=== PATIENT | female | born 1980 | race Caucasian/White ===

== ENCOUNTER 2016-09-17 21:49 | Emergency (ER) | payer MEDICARE, OTHER ==
[~2016-09-17] VITALS: Ht 167.6 cm; Wt 108.9 kg
[~2016-09-17 21:49] MED LIST: ACET325T21 PO; ACET325T9 PO; ALBU0.63 IH; ALBU1.25 NEB; ALPR0.5T6 PO; ALPR1TAB6 PO; BENZ1TAB5 PO; CEFP200T PO; CITA20TA9 PO; CLIN300C8 PO; CLON0.5T3 PO; CLON1TAB3 PO; CLON2TAB2 PO; DIVA125C PO; DIVA500T2 PO; DOXY100T PO; FLUT12HF2 IH; FLUT16SP2 NS; FLUV100T2 PO; HALO2TAB PO; HALO5TAB PO; LORA-434 PO; METO50TA2 PO; METR70GE16 VG; OLAN10TA3 PO; OLAN5TAB3 PO; OXCA300T3; OXCA600T3 PO; PRIM50TA PO; PRIM50TA24 PO; QUET300T5 PO; TIOT18CA IH; TRIM100T13 PO; [UNRECOGNIZED DRUG - OTHER] PO
--- NOTE | 2016-09-17 21:55 | PHYS DOC ---
Past History Past Medical History: Anxiety, Bipolar, COPD, Depression, Hypertension, Pneumonia, UTI Additional Past Medical Histor: Pneumonia 09/2015; dysphagia Past Surgical History: Other Additional Past Surgical Histo: PEG place 09/2015 Alcohol Use: None Drug Use: None Social History Narrative: Lives at home Adult General Chief Complaint Chief Complaint: COMBATIVE; LOSS OF PEG TUBE HPI HPI Patient is a 36 year old female who presents with change in behavior and loss of PEG tube. Lives at home and family notes that Sunday they saw her behavior change. She did gradually worsening on Sunday home care provider noted that she was much more combative. Sunday she pulled her PEG tube was taking to [facility]. She was so combative that they were not able to replace the PEG tube. She was sent home however she has dysphagia it is not to take much by mouth. They tried some thickened liquids to get her through. Her behavior has somewhat improved and she is wanting to come in and get herself feeling better. She hasn't had any fevers. No vomiting. No Diarrhea. No cough or cold symptoms. Review of Systems Review of Systems Constitutional: Denies fever or chills Eyes: Denies change in visual acuity, redness, or eye pain HENT: Denies nasal congestion or sore throat Respiratory: Denies cough or shortness of breath Cardiovascular: No chest pain GI: Denies abdominal pain, nausea, vomiting, bloody stools or diarrhea. Pulled PEG tube : Denies dysuria or hematuria Musculoskeletal: Denies back pain or joint pain Integument: Denies rash or skin lesions Neurologic: Denies headache, focal weakness or sensory changes Psychiatric: Behavioral change since Sun. Increase combativeness. Allergies Allergies Allergies Coded Allergies Type Severity Reaction Last Updated Verified Penicillins Allergy Intermediate 10/29/15 Yes Sulfa (Sulfonamide Antibiotics) Allergy Intermediate 10/29/15 Yes ciprofloxacin Allergy Intermediate 10/29/15 Yes codeine Allergy Intermediate 10/29/15 Yes levofloxacin Allergy Intermediate 06/07/14 Yes sulfamethoxazole Allergy Intermediate 06/22/15 Yes trimethoprim Allergy Intermediate 06/22/15 Yes Physical Exam Physical Exam Constitutional: Well developed, well nourished, no acute distress, non-toxic appearance. HENT: Normocephalic, atraumatic, bilateral external ears normal, oropharynx moist, no oral exudates, nose normal. Eyes: PERRLA, EOMI, conjunctiva normal, no discharge. Neck: Normal range of motion, no tenderness, supple, no stridor. Cardiovascular:Heart rate regular rhythm, no murmur Lungs & Thorax: Bilateral breath sounds clear to auscultation Abdomen: Bowel sounds normal, soft, no tenderness, no masses, no pulsatile masses. Skin: Warm, dry, no erythema, no rash. Back: No tenderness, no CVA tenderness. Extremities: No tenderness, no cyanosis, no clubbing, ROM intact, no edema. Neurologic: Alert and oriented X 3, normal motor function, normal sensory function, no focal deficits noted. Psychologic: docile and cooperative. Current Patient Data Vital Signs Vital Signs Date Time Temp Pulse Resp B/P (MAP) Pulse Ox O2 Delivery O2 Flow Rate FiO2 09/17/16 21:49 97.9 98 20 96 Room Air Lab Results Laboratory Tests Test 09/17/16 22:18 White Blood Count 6.0 x10^3/uL Red Blood Count 3.77 x10^6/uL Hemoglobin 11.6 g/dL Hematocrit 34.7 % Mean Corpuscular Volume 92 fL Mean Corpuscular Hemoglobin 31 pg Mean Corpuscular Hemoglobin Concent 34 g/dL Red Cell Distribution Width 15.3 % Platelet Count 179 x10^3/uL Neutrophils (%) (Auto) 54 % Lymphocytes (%) (Auto) 32 % Monocytes (%) (Auto) 13 % Eosinophils (%) (Auto) 0 % Basophils (%) (Auto) 1 % Neutrophils # (Auto) 3.3 x10^3uL Lymphocytes # (Auto) 1.9 x10^3/uL Monocytes # (Auto) 0.8 x10^3/uL Eosinophils # (Auto) 0.0 x10^3/uL Basophils # (Auto) 0.0 x10^3/uL Prothrombin Time 10.8 SEC Prothromb Time International Ratio 1.1 Activated Partial Thromboplast Time 22 SEC Sodium Level 144 mmol/L Potassium Level 4.0 mmol/L Chloride Level 106 mmol/L Carbon Dioxide Level 32 mmol/L Anion Gap 6 Blood Urea Nitrogen 11 mg/dL Creatinine 0.9 mg/dL Estimated GFR (Cockcroft-Gault) 70.5 BUN/Creatinine Ratio 12 Glucose Level 120 mg/dL Calcium Level 8.7 mg/dL Total Bilirubin 0.3 mg/dL Aspartate Amino Transf (AST/SGOT) 38 U/L Alanine Aminotransferase (ALT/SGPT) 34 U/L Alkaline Phosphatase 60 U/L Total Protein 6.3 g/dL Albumin 3.7 g/dL Albumin/Globulin Ratio 1.4 Lipase 130 U/L Current Medications Medications (Trade) Dose Ordered Sig/[place] Route PRN Reason Start Time Stop Time Status Last Admin Dose Admin Sodium Chloride 1,000 ml @ 1,000 mls/hr Q1H IV 09/17/16 22:30 09/17/16 23:29 09/17/16 22:23 Ondansetron HCl (Zofran) 4 mg 1X ONCE IV 09/17/16 22:30 09/17/16 22:31 DC 09/17/16 22:24 Ziprasidone (Geodon Im) 10 mg 1X ONCE IM 09/17/16 22:30 09/17/16 22:31 DC 09/17/16 22:28 Current Medications Medications (Trade) Dose Ordered Sig/[place] Route PRN Reason Start Time Stop Time Status Last Admin Dose Admin Sodium Chloride 1,000 ml @ 1,000 mls/hr Q1H IV 09/17/16 22:30 09/17/16 23:29 Ondansetron HCl (Zofran) 4 mg 1X ONCE IV 09/17/16 22:30 09/17/16 22:31 Ziprasidone (Geodon Im) 10 mg 1X ONCE IM 09/17/16 22:30 09/17/16 22:31 Course & Med Decision Making Course & Med Decision Making Pertinent Labs and Imaging studies reviewed. (See chart for details) Evaluated patient upon arrival. She is very cooperative. EMS reported though that she was combative at home. Because of her history I ordered Geodon 10 IM. Patient was agreeable to taking it. 2220 PM: Spoke w Dr Puentes- will accept in admission. We have no GI capabilities to replace the PEG and since it has been out for so long will require GI to place. Urine dip cloudy and POS leukocytes (large); ketones noted as well. She is receiving IV fluids. IV Rocephin and urine sent for culture. 2300 PM: Awaiting bed at [facility]; family aware. WE HAVE HAD NO BEHAVIORAL CHANGE THE ENTIRE TIME SHE WAS IN OUR ED. NO COMBATIVE BEHAVIOR. SHE HAS BEEN EXTREMELY PLEASANT AND COOPERATIVE. Dragon Disclaimer Dragon Disclaimer This chart was dictated in whole or in part using Voice Recognition software in a busy, high-work load, and often noisy Emergency Department environment. It may contain unintended and wholly unrecognized errors or omissions. Departure Departure: Impression: Primary Impression: PEG (percutaneous endoscopic gastrostomy) adjustment/replacement/removal Additional Impressions: Urinary tract infection Dehydration Disposition: 05 XFER OTHER Condition: GOOD Referrals: BELKIS FERNANDEZ DO (PCP) Problem Qualifiers Additional Impressions: Urinary tract infection Urinary tract infection type: site unspecified Hematuria presence: without hematuria Qualified Codes: N39.0 - Urinary tract infection, site not specified AUSTIN BEAVERS MD Sep 17, 2016 21:55
[2016-09-17] MEDS ORDERED: IV NORMAL SALINE 1,000ML 1,000 ML IV SCH (22:30)
[2016-09-17] MEDS ORDERED: ZIPRASIDONE IM 20 MG VIAL. IM ONE (22:30)
[2016-09-17] MEDS ORDERED: ONDANSETRON PF 4 MG/2 ML VIAL. IV ONE (22:30)
[2016-09-17 22:35] LABS: BASO % 1 % (0-3); EOS % 0 % (0-3); HEMATOCRIT 34.7 % (36.0-47.0); HEMOGLOBIN 11.6 g/dL (12.0-15.5); LYMPH # 1.9 x10^3/uL (1.0-4.8); LYMPH % 32 % (24-48); MEAN CORPUSCULAR HEMOGLOBIN 31 pg (25-35); MEAN CORPUSCULAR HGB CONC 34 g/dL (31-37); MEAN CORPUSCULAR VOLUME 92 fL (79-100); MONO # 0.8 x10^3/uL (0.0-1.1); MONO % 13 % (0-9); NEUT # 3.3 x10^3uL (1.8-7.7); NEUT % 54 % (31-73); PLATELET COUNT 179 x10^3/uL (140-400); RED BLOOD COUNT 3.77 x10^6/uL (3.50-5.40); RED CELL DISTRIBUTION WIDTH 15.3 % (11.5-14.5)
[2016-09-17 22:49] LABS: ALBUMIN 3.7 g/dL (3.4-5.0); ALBUMIN/GLOBULIN RATIO 1.4 (1.0-1.7); CALCIUM 8.7 mg/dL (8.5-10.1); CREATININE 0.9 mg/dL (0.6-1.0); GFR 70.5; TOTAL BILIRUBIN 0.3 mg/dL (0.2-1.0); TOTAL PROTEIN 6.3 g/dL (6.4-8.2)
[2016-09-17] MEDS ORDERED: cefTRIAXone SODIUM 1 GM VIAL IV ONE (23:16)
[2016-09-17] MEDS ORDERED: IV NORMAL SALINE 50ML 50 ML ONE (23:16)
[2016-09-17 23:28] LABS: BACTERIA,URINE FEW /HPF (0-FEW); BILIRUBIN,URINE NEG (NEG); CLARITY,URINE HAZY; COLOR,URINE YELLOW; GLUCOSE,URINE NEG (NEG); NITRITE,URINE NEG (NEG); SQUAMOUS EPITHELIAL CELL,UR FEW /LPF; UROBILINOGEN,URINE 0.2 mg/dL (0.2 mg/dL); WBC,URINE >40 /HPF (0-4)
[2016-09-17 23:59] VITALS: BP 150/98
[2016-09-18] MEDS ORDERED: ZIPRASIDONE IM 20 MG VIAL. IM ONE (00:15)
== END 2016-09-18 00:12 | disposition short-term general hospital (02) ==
LOC: ER 21:49
DX: K94.29 Other complications of gastrostomy (principal); N39.0 Urinary tract infection, site not specified; E86.0 Dehydration; J44.9 Chronic obstructive pulmonary disease, unspecified; I10 Essential (primary) hypertension; F41.9 Anxiety disorder, unspecified; F31.9 Bipolar disorder, unspecified; Z88.0 Allergy status to penicillin; Z88.1 Allergy status to other antibiotic agents; Z88.2 Allergy status to sulfonamides; Z88.5 Allergy status to narcotic agent
CPT/HCPCS: 36415; 80053; 81001; 83690; 85027; 85610; 85730; 96361; 96365; 96372; 96375; 99285; J0696; J2405; J3486; J7030